=== PATIENT | male | born 1990 | race Caucasian/White ===

== ENCOUNTER 2022-09-22 23:28 | Emergency (ER) | payer OTHER ==
[~2022-09-22] VITALS: Ht 162.6 cm; Wt 57.6 kg
[2022-09-22 23:28] VITALS: BP 114/82; PULSE 95; RESP 16; TEMP 98; O2SAT 97
--- NOTE | 2022-09-22 23:32 | NUR ---
ambulatory to lobby ACLS
--- NOTE | 2022-09-23 | NUR ---
SEEN AND EXAMINED BY NINFA
[2022-09-23] MEDS ORDERED: FAMO-90 PO (03:07)
[2022-09-23 03:10] VITALS: BP 114/82; PULSE 95; RESP 16; TEMP 98; O2SAT 97
== END 2022-09-23 03:10 | disposition home or self-care (01) ==
LOC: MED 23:28
DX: K29.70 Gastritis, unspecified, without bleeding (principal); Z79.899 Other long term (current) drug therapy
CPT/HCPCS: 99283

== ENCOUNTER 2022-09-30 19:41 | Emergency (ER) | payer OTHER ==
[~2022-09-30] VITALS: Ht 162.6 cm; Wt 59.0 kg
[~2022-09-30 19:41] MED LIST: FAMO-90 PO
--- NOTE | 2022-09-30 19:42 | NUR ---
PT [facility] ALS. TAKEN TO BED 9
[2022-09-30 19:43] VITALS: BP 121/72; PULSE 89; RESP 18; TEMP 97.3; O2SAT 92
[2022-09-30 20:02] VITALS: BP 91/53; PULSE 92; RESP 17; TEMP 97.3; O2SAT 100
--- NOTE | 2022-09-30 20:03 | NUR ---
PATIENT IS A 32/M WHO CAME IN DUE TO SHORTNESS OF BREATH LESS THAN AN HOUR AGO. NO FEVER, COUGH, COLDS, CHEST PAIN NOTED. PMHX: ASTHMA NKA
[2022-09-30] MEDS ORDERED: ALBU0.0912 INH (21:26)
== END 2022-09-30 21:55 | disposition home or self-care (01) ==
LOC: MED 19:41
DX: J45.909 Unspecified asthma, uncomplicated (principal)
CPT/HCPCS: 99283